=== PATIENT | male | born 1950 | race Caucasian/White ===

== ENCOUNTER 2023-07-27 09:37 | Inpatient (IN) ==
[2023-07-27 10:15] LABS: Appearance Urine Turbid (Clear); Bacteria Urine Automated 4+ (Negative); Bilirubin Urine Negative (Negative); Blood Urine 2+ (Negative); Color Urine Dark Yellow; Glucose Urine UA Negative (Negative); Ketones Urine 2+ (Negative); Leukocyte Esterase Urine 3+ (Negative); Nitrite Urine Positive (Negative); Protein Urine 2+ (Negative); RBC Urine Automated 0-4 /hpf (0-4); Specific Gravity Urine 1.021 (1.000-1.030); Urobilinogen Urine Negative (Negative); WBC Urine Automated >30 /hpf (0-5); pH Urine 5.5 (4.5-7.5)
[2023-07-27] MEDS: SODIUM CHLORIDE 0.9% 1,000 ML IV SCH ×2 (10:45→12:16)
[2023-07-27] MEDS: SODIUM CHLORIDE 0.9% 500 ML IV ONE (10:45)
[2023-07-27 10:53] LABS: Influenza A virus by PCR Positive (Neg); Influenza B virus by PCR Negative (Neg); RSV by PCR Negative (Neg); SARS CoV2 RNA(COVID-19) Ceph NEGATIVE (Negative)
--- NOTE | 2023-07-27 10:55 | XRay Report ---
XR chest 1V portable HISTORY: cough COMPARISON: None. FINDINGS: No pneumothorax or no pleural effusions. Punctate calcified granuloma seen within the left upper lobe. There is mild interstitial thickening. This is likely chronic. The heart is mildly enlarg ed. No evidence for pulmonary edema. No acute fractures. There is a focal 3.8 cm left retrocardiac de nsity. IMPRESSION: A focal 3.8 cm left retrocardiac density. This may represent a pneumonia or pulmonary lesion. Therefo re, follow-up chest x-ray in one to 2 months is recommended to ensure resolution. ACT 112: Positive. There are findings on this exam that require communication between the performing entity and the patient following Patient Test Result Information Act ([place] Act 112) guidelines. Electronically signed by: Lalit Almanzar M.D. 07/27/2023 10:52 AM
[2023-07-27 11:02] LABS: Basophils # (auto) 0.12 K/uL (0.00-0.20); Basophils % (auto) 0.6 %; Eosinophils # (auto) 0.02 K/uL (0.00-0.50); Eosinophils % (auto) 0.1 %; Hematocrit (blood only) 41.2 % (42.0-52.0); Immature Granulocytes # (auto) 0.41 K/uL (0.01-0.20); Immature Granulocytes % (auto) 2.1 %; Lymphocytes # (auto) 1.07 K/uL (1.20-3.40); Lymphocytes % (auto) 5.4 %; Mean Corpuscular Hemoglobin 28.5 pg (25.0-34.0); Mean Corpuscular Volume 83.9 fL (80.0-100.0); Mean Platelet Volume 10.1 fL (9.4-12.4); Monocytes # (auto) 1.77 K/uL (0.11-0.59); Monocytes % (auto) 8.9 %; Neutrophils # (auto) 16.53 K/uL (1.40-6.50); Neutrophils % (auto) 82.9 %; Platelet Count 420 K/uL (130-400); RDW Coefficient of Variation 15.3 % (11.5-14.5); RDW Standard Deviation 46.6 fL (36.4-46.3); Red Blood Count 4.91 M/uL (4.70-6.10); White Blood Count 19.92 K/ul (4.8-10.8)
[2023-07-27] MEDS: ACETAMINOPHEN 500 MG TAB PO STA (11:14)
[2023-07-27] MEDS: cefTRIAXone SODIUM 2,000 MG/50 ML BAG IV STA (11:15)
[2023-07-27 11:16] LABS: Albumin Level 4.1 gm/dl (3.4-5.0); BUN Creatinine Ratio 19.8 (10-20); Bilirubin,Total 0.8 mg/dl (0.2-1.0); Calcium 9.4 mg/dl (8.6-10.3); Creatinine Clr Calc Pharmacy 66.1 ml/min; Est GFR (African American) 85.7 ml/min; Globulin 4.3 gm/dl (2.5-4.0); Magnesium 2.2 mg/dl (1.7-2.4); Potassium 3.7 mmol/L (3.5-5.1); Total Protein 8.4 gm/dl (6.0-8.3)
[2023-07-27 11:20] LABS: Troponin I High Sensitivity 22.4 pg/ml (0-20)
[2023-07-27 11:23] LABS: INR 1.1 (0.9-1.1); Partial Thromboplastin Ratio 1.2; Partial Thromboplastin Time 34 Seconds (21-31); Prothrombin Time 11.9 Seconds (9.0-12.0)
--- NOTE | 2023-07-27 12:04 | History & Physical Report ---
Date of Service July 27, 2023 Assessment & Plan (1) Sepsis: Plan: This is a 73 y/o male with a history of multiple UTIs who presented to the ED today with flu-like symptoms as well as persistent urinary symptoms. He notes recent treatment for a UTI but unsure with what antibiotic. Pt met sepsis criteria upon presentation with tachycardia, leukocytosis, and presumed source of infection with a urinary source. Initial lactate was 1.6. Pt also tested positive for influenza A. Chest x-ray shows moderate LLL airspace opacity, likely due to pneumonia. Responded to fluid resuscitation in the ED with improvement in heart rate and BP. - Admit to PCU - Continue empiric antibiotics - blood and urine cultures pending - Labs in the AM - CBC, BMP, LFTs - Check MRSA swab - Encourage oral intake - continue IV fluid resuscitation protocol as started in the ED. (2) UTI (urinary tract infection): Plan: Continue empiric antibiotics Await urine culture results, then transition to oral antibiotic (3) Bacterial conjunctivitis of left eye: Plan: Polytrim drops x 1 week (4) Pneumonia: Plan: Will need f/u x-ray in 1-2 months to ensure resolution as underlying pulmonary lesion cannot be ruled out at present Continue empiric antibiotics with ceftriaxone and azithromycin (5) Influenza A: Plan: Flu-like symptoms for five days so patient is outside the window for Tamiflu Continue supportive care Droplet precautions Plan Pt seen and reviewed with collaborating physician, Dr. Lindo. Plan of care discussed and as outlined above. Code status: Full code DVT Prophylaxis: Purnima Kc PA-C History of Present Illness Chief Complaint: flu-like symptoms Primary Care Provider: NO PCP This is a 73 y/o male with a history of UTIs who presents to the ED today with five days of flu-like symptoms. He also notes that he was recently treated for a UTI but is unsure what antibiotic he was on. He reports fatigue, body aches, cough, and chills for the last five days. He moved to the area about two weeks ago from [place] and has not yet established with a PCP here. He notes at least 2-3 UTIs in the last several months but is unsure what antibiotics have been used. He denies history of BPH or other prostate issues. His current urinary symptoms include urinary frequency and urgency but denies dysuria or hematuria. He also noted purulent drainage from his left eye that started last night. Associated gritty sensation but no pain, no visual changes. Allergies Allergy/AdvReac Type Severity Reaction Status Date / Time No Known Allergies Allergy Unverified 07/27/23 12:21 Home Medications Medication Instructions Recorded Confirmed Type No Known Home Medications 07/27/23 07/27/23 History Past Med/Surg History Medical History Frequent UTI Surgical History S/P tonsillectomy Family History Father Heart disease Social History Smoking Status: Never smoker Second Hand Exposure: No; Hx Alcohol Use: No Hx Substance Use: No Preferred Language: Ukrainian Hand Cooper Helper Required: No Current Living Situation: Spouse current occupational status: retired Feels Safe at Home: Yes Safety Concerns: Feels Safe At This Time Review of Systems Review of Systems: All systems reviewed & are unremarkable except as noted in HPI & below Physical Exam Physical Exam: General: awake, alert, NAD Eyes: left eye with moderate purulent drainage, mild conjunctival erythema Mouth: moist mucus membranes Neck: trachea midline Heart: regular but tachycardic Lungs: CTA bilaterally Abdomen: soft, NT, +BS Extremities: no pedal edema Skin: warm, dry, no jaundice Neurologic: oriented x 3, moving all extremities, no focal deficits. Results & Data Results & Data Vital Signs (Past 12 Hours) Vital Signs Temp Pulse Pulse Resp BP BP Pulse Ox 07/27/23 11:31 106 H 24 151/82 H 96 07/27/23 10:38 37.9 C H 07/27/23 10:38 115 H 22 92 07/27/23 09:47 37.3 C 120 H 20 125/70 91 O2 Del Method 07/27/23 11:31 Room Air 07/27/23 10:38 07/27/23 10:38 Room Air 07/27/23 09:47 Room Air Laboratory Results Laboratory Results - last 24 hr 07/27/23 07/27/23 07/27/23 09:23 09:53 10:27 WBC 19.92 H RBC 4.91 Hgb 14.0 Hct 41.2 L MCV 83.9 MCH 28.5 MCHC 34.0 RDW Std Deviation 46.6 H RDW Coeff of Cheri 15.3 H Plt Count 420 H MPV 10.1 Immature Gran % (Auto) 2.1 Neut % (Auto) 82.9 Lymph % (Auto) 5.4 Sullivan % (Auto) 8.9 Eos % (Auto) 0.1 Baso % (Auto) 0.6 Neut # (Auto) 16.53 H Lymph # (Auto) 1.07 L Sullivan # (Auto) 1.77 H Eos # (Auto) 0.02 Baso # (Auto) 0.12 Immature Gran # (Auto) 0.41 H PT 11.9 INR 1.1 APTT 34 H PTT Ratio 1.2 Sodium 133 L Potassium 3.7 Chloride 96 L Carbon Dioxide 25 Anion Gap 12 H BUN 20 Creatinine 1.01 Est Cr Clr Drug Dosing 66.1 Est GFR ( Amer) 85.7 Est GFR (Non-Af Amer) 74.0 BUN/Creatinine Ratio 19.8 Glucose 120 H Lactate Calcium 9.4 Magnesium 2.2 Total Bilirubin 0.8 AST 33 ALT 37 Alkaline Phosphatase 166 H Troponin I High Sens 22.4 H Total Protein 8.4 H Albumin 4.1 Globulin 4.3 H Albumin/Globulin Ratio 1.0 Urine Color Dark Yellow Urine Appearance Turbid A Urine pH 5.5 Ur Specific [place] 1.021 Urine Protein 2+ H Urine Glucose (UA) Negative Urine Ketones 2+ H Urine Blood 2+ H Urine Nitrite Positive A Urine Bilirubin Negative Urine Urobilinogen Negative Ur Leukocyte Esterase 3+ H Urine WBC (Auto) >30 H Urine RBC (Auto) 0-4 U Hyaline Cast (Auto) 1-5 U Epithel Cells (Auto) 5-10 H Urine Bacteria (Auto) 4+ H Ur Renal Epithelial Cell Urine Crystals Calcium Oxalate Crystal Uric Acid Crystals Triple Phos Crystals Other Crystals Amorphous Sediment Granular Casts Waxy Casts RBC Casts WBC Casts Other Casts Urine Mucus Urine Other Urine Trichomonas Urine Yeast Urine Sperm Ur Oval Fat Bodies SARS-CoV-2 (PCR) NEGATIVE Influenza Type A (PCR) Positive A Influenza Type B (PCR) Negative RSV (RT-PCR) Negative 07/27/23 07/27/23 11:07 Unknown WBC RBC Hgb Hct MCV MCH MCHC RDW Std Deviation RDW Coeff of Cheri Plt Count MPV Immature Gran % (Auto) Neut % (Auto) Lymph % (Auto) Sullivan % (Auto) Eos % (Auto) Baso % (Auto) Neut # (Auto) Lymph # (Auto) Sullivan # (Auto) Eos # (Auto) Baso # (Auto) Immature Gran # (Auto) PT INR APTT PTT Ratio Sodium Potassium Chloride Carbon Dioxide Anion Gap BUN Creatinine Est Cr Clr Drug Dosing Est GFR ( Amer) Est GFR (Non-Af Amer) BUN/Creatinine Ratio Glucose Lactate 1.6 Calcium Magnesium Total Bilirubin AST ALT Alkaline Phosphatase Troponin I High Sens Total Protein Albumin Globulin Albumin/Globulin Ratio Urine Color Cancelled Urine Appearance Cancelled Urine pH Cancelled Ur Specific [place] Cancelled Urine Protein Cancelled Urine Glucose (UA) Cancelled Urine Ketones Cancelled Urine Blood Cancelled Urine Nitrite Cancelled Urine Bilirubin Cancelled Urine Urobilinogen Cancelled Ur Leukocyte Esterase Cancelled Urine WBC (Auto) Cancelled Urine RBC (Auto) Cancelled U Hyaline Cast (Auto) Cancelled U Epithel Cells (Auto) Cancelled Urine Bacteria (Auto) Cancelled Ur Renal Epithelial Cell Cancelled Urine Crystals Cancelled Calcium Oxalate Crystal Cancelled Uric Acid Crystals Cancelled Triple Phos Crystals Cancelled Other Crystals Cancelled Amorphous Sediment Cancelled Granular Casts Cancelled Waxy Casts Cancelled RBC Casts Cancelled WBC Casts Cancelled Other Casts Cancelled Urine Mucus Cancelled Urine Other Cancelled Urine Trichomonas Cancelled Urine Yeast Cancelled Urine Sperm Cancelled Ur Oval Fat Bodies Cancelled SARS-CoV-2 (PCR) Influenza Type A (PCR) Influenza Type B (PCR) RSV (RT-PCR) Diagnostic Findings Chest X-Ray 07/27/23 09:57 XR chest 1V portable HISTORY: cough COMPARISON: None. FINDINGS: No pneumothorax or no pleural effusions. Punctate calcified granuloma seen within the left upper lobe. There is mild interstitial thickening. This is likely chronic. The heart is mildly enlarged. No evidence for pulmonary edema. No acute fractures. There is a focal 3.8 cm left retrocardiac density. IMPRESSION: A focal 3.8 cm left retrocardiac density. This may represent a pneumonia or pulmonary lesion. Therefore, follow-up chest x-ray in one to 2 months is recommended to ensure resolution. ACT 112: Positive. There are findings on this exam that require communication between the performing entity and the patient following Patient Test Result Information Act ([place] Act 112) guidelines. Electronically signed by: Lalit Almanzar M.D. 07/27/2023 10:52 AM Medications Administered Sodium Chloride (Nss) 1,000 mls @ 125 mls/hr IV .Q8H ROHIT Stop: 08/26/23 10:44 Last Admin: 07/27/23 10:45 Dose: 125 mls/hr Documented By: KILO Discontinued Medications Acetaminophen (Acetaminophen 500 Mg Tab) 1,000 mg PO NOW STA Stop: 07/27/23 10:56 Last Admin: 07/27/23 11:14 Dose: 1,000 mg Documented By: ARON Ceftriaxone Sodium (Rocephin) 2,000 mg in 50 mls @ 100 mls/hr IV NOW STA Stop: 07/27/23 10:55 Last Infusion: 07/27/23 11:41 Dose: Infused Documented By: Admin: 07/27/23 11:15 Dose: 100 mls/hr Documented By: ARON Sodium Chloride (Nss) 500 mls @ 999 mls/hr IV .Q31M ONE Stop: 07/27/23 11:10 Last Infusion: 07/27/23 11:19 Dose: Infused Documented By: Admin: 07/27/23 10:45 Dose: 999 mls/hr Documented By: KILO Supervising Physician Co-Signing Physician Notes I have seen and examined the patient and have discussed the case with the provider above. I have reviewed the advanced practitioner's documentation, and I agree with, and take responsibility for that plan of care. The patient is a 73-year-old man reporting no chronic medical problems who presents with an influenza-like illness for the past 5 to 6 days. Symptoms are consistent with influenza and he test positive. Otherwise history as noted above. He denies any chest pain. He does report to me presence of increased urinary frequency and urgency over an unspecified time with a history of frequent UTIs in the past. He denies any dysuria or hematuria and no pelvic or flank pain noted. Patient does meet sepsis criteria and heart rate is still elevated. On exam he is ill-appearing with blood pressure 119/67, pulse 110. He has normal respirations and no increased respiratory effort. Lungs are clear to auscultation throughout. Deep breaths are triggering cough. He is afebrile currently but was febrile initially with a temp of 37.9 C and oxygenating well on room air. He is mentating clearly. ENT exam reveals a purulent discharge fr om the left eye consistent with a possible bacterial conjunctivitis. Oral mucous membranes are moist. Cardiac exam reveals S1-S2 heard with no murmurs gallops or rubs. He examines as euvolemic to dry and has no peripheral edema. Abdomen soft nontender nondistended. No gross focal neuromuscular deficits are present. Workup in the ER reveals a CBC with elevated white blood cell count of 19.92. H&H is normal and platelet count is slightly elevated at 420. There is a left shift on the differential. CHEM panel reveals a slightly low sodium at 133 with an otherwise normal chemistry and a normal lactate. Slightly elevated highly sensitive troponin at 22.4 with repeat of 13.3 in the setting of tachycardia. UA is reflective of an infection. Nasal PCR is positive for flu A. Chest x-ray today is concerning for possible left lower lobe airspace opacity favoring a pneumonia. Overall this is a patient with influenza A infection with underlying UTI and possible pneumonia. Agree with withholding Tamiflu at this point given timing of symptoms. Continue with Rocephin and azithromycin pending clinical improvement and culture results. Continue supportive care efforts for influenza illness. Tachycardia and fever with elevated white count in setting of urinary tract infection consistent with sepsis 2/2 UTI, and he received initial sepsis resuscitation efforts in the ER with improvement in heart rate. Mildly elevated troponin is less concerning for ACS given lack of symptoms consistent with this, EKG which reveals sinus tachycardia without evidence of acute ischemia and a repeat troponin that is decreased into the normal range. Continue care plan as noted above. DO Guicho (1) Sepsis Sepsis acute organ dysfunction status: without acute organ dysfunction Sepsis type: sepsis due to unspecified organism Qualified Code(s): A41.9 - Sepsis, unspecified organism (2) UTI (urinary tract infection) Hematuria presence: without hematuria Urinary tract infection type: site unspecified Qualified Code(s): N39.0 - Urinary tract infection, site not specified (4) Pneumonia Laterality: left Lung location: lower lobe of lung Pneumonia type: due to unspecified organism Qualified Code(s): J18.9 - Pneumonia, unspecified organism
--- NOTE | 2023-07-27 12:12 | XRay Report ---
XR chest 2V PA/lateral CLINICAL HISTORY: retrocardiac opacity COMPARISON STUDY: Chest radiograph performed earlier today. FINDINGS: Lung volumes are normal. There is no pneumothorax or pleural effusion. Pulmonary vascularit y is normal. There is mild cardiomegaly. Moderate left lower lobe airspace opacity is present. This c orresponds to the opacity on portable chest radiograph performed earlier today. Right lung is clear. IMPRESSION: Moderate left lower lobe airspace opacity. This favors pneumonia. However, post treatment radiographs in one to 2 months to ensure resolution are recommended to exclude the possibility of an pulmonary lesion. ACT 112: Negative or not required by law. Electronically signed by: Milton Michelle M.D. 07/27/2023 12:11 PM
--- NOTE | 2023-07-27 12:15 | Electrocardiogram Report ---
Test Reason : Blood Pressure : / mmHG Vent. Rate : 116 BPM Atrial Rate : 116 BPM P-R Int : 124 ms QRS Dur : 086 ms QT Int : 318 ms P-R-T Axes : 058 -34 037 degrees QTc Int : 442 ms Sinus tachycardia with occasional Premature ventricular complexes Left axis deviation Nonspecific ST abnormality Abnormal ECG No previous ECGs available Confirmed by Sidney Herron ([id number]) on 07/27/2023 12:15:07 PM Referred By: Confirmed By:Sidney Herron
[2023-07-27] MEDS: SODIUM CHLORIDE 0.9% 1,000 ML IV ONE (12:16)
[2023-07-27] MEDS: AZITHROMYCIN 500 MG in DEXTROSE 5% 250 ML IV SCH (15:59)
[2023-07-27] MEDS: SODIUM CHLORIDE 0.9% 250 ML IV ONE (15:59)
[2023-07-27] MEDS: TRIMETHOPRIM/POLYMYXIN B OP SCH (16:02)
[2023-07-27] MEDS: ACETAMINOPHEN 325 MG TAB PO PRN (20:54)
[2023-07-28] MEDS: guaiFENesin/CODEINE 100MG/10MG 5ML UDC PO PRN (03:59)
[2023-07-28 06:38] LABS: Basophils # (auto) 0.11 K/uL (0.00-0.20); Basophils % (auto) 0.6 %; Eosinophils # (auto) 0.08 K/uL (0.00-0.50); Eosinophils % (auto) 0.4 %; Hematocrit (blood only) 32.5 % (42.0-52.0); Hemoglobin 11.5 g/dl (14.0-18.0); Immature Granulocytes # (auto) 0.76 K/uL (0.01-0.20); Immature Granulocytes % (auto) 4.1 %; Lymphocytes # (auto) 1.33 K/uL (1.20-3.40); Lymphocytes % (auto) 7.2 %; Mean Corpuscular Hemoglobin 29.1 pg (25.0-34.0); Mean Corpuscular Hgb Conc 35.4 g/dL (32.0-36.0); Mean Corpuscular Volume 82.3 fL (80.0-100.0); Monocytes % (auto) 10.2 %; Neutrophils # (auto) 14.36 K/uL (1.40-6.50); Neutrophils % (auto) 77.5 %; Platelet Count 338 K/uL (130-400); RDW Coefficient of Variation 15.4 % (11.5-14.5); RDW Standard Deviation 46.3 fL (36.4-46.3); Red Blood Count 3.95 M/uL (4.70-6.10); White Blood Count 18.54 K/ul (4.8-10.8)
[2023-07-28 07:10] LABS: Albumin Level 3.2 gm/dl (3.4-5.0); BUN Creatinine Ratio 17.3 (10-20); Bilirubin Direct 0.2 mg/dl (0-0.2); Bilirubin,Total 0.7 mg/dl (0.2-1.0); Est GFR (African American) 106.2 ml/min; Est GFR (Non-African American) 91.6 ml/min; Potassium 3.5 mmol/L (3.5-5.1); Total Protein 6.5 gm/dl (6.0-8.3)
[2023-07-28] MEDS: ENOXAPARIN INJ 40 MG/0.4 ML SYR SQ SCH (08:58)
[2023-07-28] MEDS: cefTRIAXone SODIUM 2,000 MG in DEXTROSE 5 % MINI-B 50 ML IV SCH (09:00)
--- NOTE | 2023-07-28 10:53 | Emergency Department Note ---
Impression & Plan Pneumonia, UTI (urinary tract infection), Influenza A ED Provider Note CHIEF COMPLAINT: Flulike symptoms HISTORY OF PRESENT ILLNESS: This 73-year-old male patient presents to the emergency department cough, body aches with chills for the last 7 days. He is not clear if he had a fever or not. Patient's just moved to the area about 7 days ago. Patient's notes that he has not been doing well, has very little to eat and she believes he is lost weight. She states that she and her grandson have similar symptoms, but on much less of the scale. Patient states he is returning to keep up with fluids. He denies any vomiting or diarrhea. REVIEW OF SYSTEMS: A review of systems was performed with positives and pertinent negatives listed in the history of present illness. 10 systems were reviewed and are otherwise negative. ALLERGIES: see below MEDICATIONS: see below PMH: see below SOCIAL HISTORY: see below DDx: COVID-19, influenza, dehydration, metabolic abnormality, pneumonia, UTI among others. PHYSICAL EXAM: Vital signs reviewed. Noted to be febrile General: Elderly 73-year-old male, somewhat ill-appearing but, in no significant distress. HEENT: No scleral icterus, PERRLA, neck supple. Moist mucous membranes. Mild conjunctival injection, minimal lid swelling on the left eye. Cardiovascular: Tachycardic but regular, no extra sounds Pulmonary: Clear to auscultation bilaterally, normal work of breathing. Abdomen: Soft, nontender, nondistended, positive bowel sounds. Musculoskeletal: Atraumatic, no peripheral edema. Neurologic: Patient awake alert and oriented x 3, speech is clear Skin: Warm, dry, no rash EMERGENCY DEPARTMENT COURSE/MDM: This patient was evaluated and appeared to be in no significant distress. IV access was obtained and laboratory work was drawn. The patient was given acetaminophen 1000 mg by mouth. Chest x-ray was performed and is concerning for pneumonia. Blood cultures were sent and the patient was given IV ceftriaxone. Laboratory work reveals an elevated WBC. UA is concerning for infection. Isolation precautions were placed and the patient's case was discussed with hospitalist service for admission and further management. Patient and have expressed understanding of the plan and agree. MONITORING: An order for cardiac monitoring was placed and the patient is noted to be in a sinus tachycardia at 106 beats per minute. RADIOLOGY: Chest x-ray to my interpretation reveals no evidence of focal lung consolidation however per radiology there is concern for a retrocardiac density. Per radiology it is felt that this represents pneumonia, follow-up in several months to ensure resolution recommended. EKG: To my interpretation reveals sinus tachycardia at 116 bpm. Left axis deviation, normal ST segments. Nonspecific ST and T wave abnormality QTc is 442. 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 Current Living Situation: Spouse current occupational status: retired Feels Safe at Home: Yes Safety Concerns: Feels Safe At This Time Assistive Devices: None Allergies Allergies Allergy/AdvReac Type Severity Reaction Status Date / Time No Known Allergies Allergy Unverified 07/27/23 12:21 Home Meds Home Medications Medication Instructions Recorded Confirmed No Known Home Medications 07/27/23 07/27/23 Previous Rx's Medication Instructions Recorded ciprofloxacin HCl 500 mg tablet 500 mg PO Q12H #26 tabs 07/30/23 Results & Data (ED) Vital Signs Vital Signs - 24 hr 07/27/23 11:31 Pulse Rate [Right Finger] 106 H Respiratory Rate 24 Blood Pressure [Right Arm] 151/82 H Blood Pressure Mean [Right Arm] 105 Pulse Oximetry 96 Oxygen Delivery Method Room Air Home Medications Current Medication List: was personally reviewed by me Laboratory Data Attestation: I reviewed the patient's lab results. 07/30/23 06:17 07/30/23 06:17 Lab Results 07/27/23 07/27/23 07/27/23 Range/Units 09:23 09:53 10:27 WBC 19.92 H (4.8-10.8) K/ul RBC 4.91 (4.70-6.10) M/uL Hgb 14.0 (14.0-18.0) g/dl Hct 41.2 L (42.0-52.0) % MCV 83.9 (80.0-100.0) fL MCH 28.5 (25.0-34.0) pg MCHC 34.0 (32.0-36.0) g/dL RDW Std Deviation 46.6 H (36.4-46.3) fL RDW Coeff of Cheri 15.3 H (11.5-14.5) % Plt Count 420 H (130-400) K/uL MPV 10.1 (9.4-12.4) fL Immature Gran % (Auto) 2.1 % Neut % (Auto) 82.9 % Lymph % (Auto) 5.4 % [place] % (Auto) 8.9 % Eos % (Auto) 0.1 % Baso % (Auto) 0.6 % Neut # (Auto) 16.53 H (1.40-6.50) K/uL Lymph # (Auto) 1.07 L (1.20-3.40) K/uL [place] # (Auto) 1.77 H (0.11-0.59) K/uL Eos # (Auto) 0.02 (0.00-0.50) K/uL Baso # (Auto) 0.12 (0.00-0.20) K/uL Immature Gran # (Auto) 0.41 H (0.01-0.20) K/uL PT 11.9 (9.0-12.0) Seconds INR 1.1 (0.9-1.1) APTT 34 H (21-31) Seconds PTT Ratio 1.2 Sodium 133 L (136-145) mmol/L Potassium 3.7 (3.5-5.1) mmol/L Chloride 96 L (98-107) mmol/L Carbon Dioxide 25 (21-32) mmol/L Anion Gap 12 H (3-11) BUN 20 (6-23) mg/dl Creatinine 1.01 (0.6-1.4) mg/dl Est Cr Clr Drug Dosing 66.1 ml/min Est GFR ( Amer) 85.7 ml/min Est GFR (Non-Af Amer) 74.0 ml/min BUN/Creatinine Ratio 19.8 (10-20) Glucose 120 H (70-99(Fasting)) mg/dl Lactate (0.4-2.0) mmol/L Calcium 9.4 (8.6-10.3) mg/dl Magnesium 2.2 (1.7-2.4) mg/dl Total Bilirubin 0.8 (0.2-1.0) mg/dl AST 33 (13-39) U/L ALT 37 (7-52) U/L Alkaline Phosphatase 166 H (34-104) U/L Troponin I High Sens 22.4 H (0-20) pg/ml Total Protein 8.4 H (6.0-8.3) gm/dl Albumin 4.1 (3.4-5.0) gm/dl Globulin 4.3 H (2.5-4.0) gm/dl Albumin/Globulin Ratio 1.0 (0.9-2) Urine Color Dark Yellow Urine Appearance Turbid A (Clear) Urine pH 5.5 (4.5-7.5) Ur Specific [place] 1.021 (1.000-1.030) Urine Protein 2+ H (Negative) Urine Glucose (UA) Negative (Negative) Urine Ketones 2+ H (Negative) Urine Blood 2+ H (Negative) Urine Nitrite Positive A (Negative) Urine Bilirubin Negative (Negative) Urine Urobilinogen Negative (Negative) Ur Leukocyte Esterase 3+ H (Negative) Urine WBC (Auto) >30 H (0-5) /hpf Urine RBC (Auto) 0-4 (0-4) /hpf U Hyaline Cast (Auto) 1-5 (0-5) /lpf U Epithel Cells (Auto) 5-10 H (0-5) /lpf Urine Bacteria (Auto) 4+ H (Negative) SARS-CoV-2 (PCR) NEGATIVE (Negative) H. influenzae (PCR) (NotDetected) Influenza Type A (PCR) Positive A (Neg) Influenza Type B (PCR) Negative (Neg) RSV (RT-PCR) Negative (Neg) Bld Cult ID Panel PCR (NotDetected) 07/27/23 07/27/23 Range/Units 10:52 11:07 WBC (4.8-10.8) K/ul RBC (4.70-6.10) M/uL Hgb (14.0-18.0) g/dl Hct (42.0-52.0) % MCV (80.0-100.0) fL MCH (25.0-34.0) pg MCHC (32.0-36.0) g/dL RDW Std Deviation (36.4-46.3) fL RDW Coeff of Cheri (11.5-14.5) % Plt Count (130-400) K/uL MPV (9.4-12.4) fL Immature Gran % (Auto) % Neut % (Auto) % Lymph % (Auto) % [place] % (Auto) % Eos % (Auto) % Baso % (Auto) % Neut # (Auto) (1.40-6.50) K/uL Lymph # (Auto) (1.20-3.40) K/uL [place] # (Auto) (0.11-0.59) K/uL Eos # (Auto) (0.00-0.50) K/uL Baso # (Auto) (0.00-0.20) K/uL Immature Gran # (Auto) (0.01-0.20) K/uL PT (9.0-12.0) Seconds INR (0.9-1.1) APTT (21-31) Seconds PTT Ratio Sodium (136-145) mmol/L Potassium (3.5-5.1) mmol/L Chloride (98-107) mmol/L Carbon Dioxide (21-32) mmol/L Anion Gap (3-11) BUN (6-23) mg/dl Creatinine (0.6-1.4) mg/dl Est Cr Clr Drug Dosing ml/min Est GFR ( Amer) ml/min Est GFR (Non-Af Amer) ml/min BUN/Creatinine Ratio (10-20) Glucose (70-99(Fasting)) mg/dl Lactate 1.6 (0.4-2.0) mmol/L Calcium (8.6-10.3) mg/dl Magnesium (1.7-2.4) mg/dl Total Bilirubin (0.2-1.0) mg/dl AST (13-39) U/L ALT (7-52) U/L Alkaline Phosphatase (34-104) U/L Troponin I High Sens (0-20) pg/ml Total Protein (6.0-8.3) gm/dl Albumin (3.4-5.0) gm/dl Globulin (2.5-4.0) gm/dl Albumin/Globulin Ratio (0.9-2) Urine Color Urine Appearance (Clear) Urine pH (4.5-7.5) Ur Specific [place] (1.000-1.030) Urine Protein (Negative) Urine Glucose (UA) (Negative) Urine Ketones (Negative) Urine Blood (Negative) Urine Nitrite (Negative) Urine Bilirubin (Negative) Urine Urobilinogen (Negative) Ur Leukocyte Esterase (Negative) Urine WBC (Auto) (0-5) /hpf Urine RBC (Auto) (0-4) /hpf U Hyaline Cast (Auto) (0-5) /lpf U Epithel Cells (Auto) (0-5) /lpf Urine Bacteria (Auto) (Negative) SARS-CoV-2 (PCR) (Negative) H. influenzae (PCR) DETECTED A (NotDetected) Influenza Type A (PCR) (Neg) Influenza Type B (PCR) (Neg) RSV (RT-PCR) (Neg) Bld Cult ID Panel PCR See PCR Comment (NotDetected) Administered Medications Discontinued Medications Acetaminophen (Acetaminophen 500 Mg Tab) 1,000 mg PO NOW STA Stop: 07/27/23 10:56 Last Admin: 07/27/23 11:14 Dose: 1,000 mg Documented By: ARON Acetaminophen (Acetaminophen 325 Mg Tab) 650 mg PO Q4H PRN PRN Reason: Pain or Fever Stop: 08/26/23 14:53 Last Admin: 07/29/23 03:49 Dose: 650 mg Documented By: Admin: 07/28/23 19:39 Dose: 650 mg Documented By: Admin: 07/28/23 09:00 Dose: 650 mg Documented By: Admin: 07/28/23 05:01 Dose: 650 mg Documented By: Admin: 07/27/23 20:54 Dose: 650 mg Documented By: MIKI Enoxaparin Sodium (Enoxaparin Inj 40 Mg/0.4 Ml Syr) 40 mg SQ QAM ROHIT Stop: 08/27/23 08:59 Last Admin: 07/30/23 08:49 Dose: Not Given Documented By: Admin: 07/29/23 09:47 Dose: Not Given Documented By: Admin: 07/28/23 08:58 Dose: Not Given Documented By: MART Guaifenesin/Codeine Phosphate (Guaifenesin/Codeine 100mg/10mg 5ml Udc) 5 ml PO Q6H PRN PRN Reason: Cough Stop: 08/27/23 03:45 Last Admin: 07/29/23 09:51 Dose: 5 ml Documented By: Admin: 07/29/23 03:14 Dose: 5 ml Documented By: Admin: 07/28/23 19:39 Dose: 5 ml Documented By: Admin: 07/28/23 12:42 Dose: 5 ml Documented By: Admin: 07/28/23 03:59 Dose: 5 ml Documented By: MIKI Ceftriaxone Sodium (Rocephin) 2,000 mg in 50 mls @ 100 mls/hr IV NOW STA Stop: 07/27/23 10:55 Last Infusion: 07/27/23 11:41 Dose: Infused Documented By: Admin: 07/27/23 11:15 Dose: 100 mls/hr Documented By: ARON Sodium Chloride (Nss) 500 mls @ 999 mls/hr IV .Q31M ONE Stop: 07/27/23 11:10 Last Infusion: 07/27/23 11:19 Dose: Infused Documented By: Admin: 07/27/23 10:45 Dose: 999 mls/hr Documented By: KILO Sodium Chloride (Nss) 1,000 mls @ 125 mls/hr IV .Q8H ROHIT Stop: 07/28/23 02:44 Last Infusion: 07/28/23 02:43 Dose: Infused Documented By: Admin: 07/27/23 16:02 Dose: 125 mls/hr Documented By: Infusion: 07/27/23 16:02 Dose: Infused Documented By: Admin: 07/27/23 10:45 Dose: 125 mls/hr Documented By: IKLO Sodium Chloride (Nss) 1,000 mls @ 999 mls/hr IV .Q1H1M ONE Stop: 07/27/23 12:20 Last Infusion: 07/27/23 13:44 Dose: Infused Documented By: Admin: 07/27/23 12:16 Dose: 999 mls/hr Documented By: ARON Sodium Chloride (Nss) 1,000 mls @ 250 mls/hr IV .Q4H [facility] Stop: 08/26/23 11:29 Last Infusion: 07/27/23 16:41 Dose: Infused Documented By: Infusion: 07/27/23 16:09 Dose: 0 mls/hr Documented By: Infusion: 07/27/23 16:08 Dose: 0 mls/hr Documented By: Admin: 07/27/23 12:16 Dose: 250 mls/hr Documented By: ARON Azithromycin 500 mg/ Dextrose 255 mls @ 125 mls/hr IV Q24H [facility] Stop: 08/03/23 14:59 Last Admin: 07/28/23 15:24 Dose: Not Given Documented By: Infusion: 07/27/23 18:08 Dose: Infused Documented By: Admin: 07/27/23 15:59 Dose: 125 mls/hr Documented By: AMBIKA Ceftriaxone Sodium 2,000 mg/ (Dextrose) 50 mls @ 100 mls/hr IV Q24H [facility]; Protocol Stop: 08/01/23 07:59 Last Infusion: 07/28/23 09:30 Dose: Infused Documented By: Admin: 07/28/23 09:00 Dose: 100 mls/hr Documented By: MART Sodium Chloride (Nss) 250 mls @ 999 mls/hr IV .Q16M ONE Stop: 07/27/23 15:19 Last Infusion: 07/27/23 16:40 Dose: Infused Documented By: Admin: 07/27/23 15:59 Dose: 999 mls/hr Documented By: AMBIKA Lactated Ringer's (Lr) 500 mls @ 999 mls/hr IV .Q31M ONE Stop: 07/28/23 15:38 Last Infusion: 07/28/23 15:56 Dose: Infused Documented By: Admin: 07/28/23 15:25 Dose: 999 mls/hr Documented By: MART Ampicillin Sodium/Sulbactam Sodium 3,000 mg/ Sodium Chloride 100 mls @ 200 mls/hr IV Q6H [facility] Stop: 08/11/23 15:59 Last Infusion: 07/29/23 03:44 Dose: Infused Documented By: Admin: 07/29/23 03:14 Dose: 200 mls/hr Documented By: Infusion: 07/28/23 22:07 Dose: Infused Documented By: Admin: 07/28/23 21:37 Dose: 200 mls/hr Documented By: Infusion: 07/28/23 16:37 Dose: Infused Documented By: Admin: 07/28/23 16:07 Dose: 200 mls/hr Documented By: MART Ciprofloxacin (Cipro / D5w) 400 mg in 200 mls @ 100 mls/hr IV Q8H ROHIT; Protocol Stop: 08/12/23 09:29 Last Infusion: 07/30/23 10:49 Dose: Infused Documented By: Admin: 07/30/23 08:49 Dose: 100 mls/hr Documented By: Infusion: 07/30/23 02:34 Dose: Infused Documented By: Admin: 07/30/23 00:41 Dose: 100 mls/hr Documented By: Infusion: 07/29/23 19:50 Dose: Infused Documented By: Admin: 07/29/23 17:30 Dose: 100 mls/hr Documented By: Infusion: 07/29/23 13:09 Dose: Infused Documented By: Admin: 07/29/23 11:09 Dose: 100 mls/hr Documented By: MART Potassium Phosphate 30 mmol/ (Sodium Chloride) 510 mls @ 88 mls/hr IV ONE ONE Stop: 07/29/23 15:02 Last Infusion: 07/29/23 16:58 Dose: Infused Documented By: Admin: 07/29/23 11:10 Dose: 88 mls/hr Documented By: MART Polyethylene Glycol (Polyethylene (Miralax) 17 Gm Pack) 17 gm PO DAILY PRN PRN Reason: Constipation Stop: 08/29/23 03:06 Last Admin: 07/30/23 09:00 Dose: 17 gm Documented By: MART Polymyxin/Trimethoprim Sulfate (Trimethoprim/Polymyxin B) 1 drops OP Q3HWA ROHIT Stop: 08/03/23 14:59 Last Admin: 07/30/23 14:57 Dose: 1 drops Documented By: Admin: 07/30/23 11:15 Dose: 1 drops Documented By: Admin: 07/30/23 08:49 Dose: 1 drops Documented By: Admin: 07/30/23 05:08 Dose: 1 drops Documented By: Admin: 07/29/23 20:04 Dose: 1 drops Documented By: Admin: 07/29/23 17:30 Dose: 1 drops Documented By: Admin: 07/29/23 16:08 Dose: 1 drops Documented By: Admin: 07/29/23 11:10 Dose: 1 drops Documented By: Admin: 07/29/23 09:47 Dose: 1 drops Documented By: Admin: 07/29/23 05:07 Dose: 1 drops Documented By: Admin: 07/28/23 20:00 Dose: 1 drops Documented By: Admin: 07/28/23 18:09 Dose: 1 drops Documented By: Admin: 07/28/23 15:25 Dose: 1 drops Documented By: Admin: 07/28/23 12:37 Dose: 1 drops Documented By: Admin: 07/28/23 09:00 Dose: 1 drops Documented By: Admin: 07/28/23 05:01 Dose: 1 drops Documented By: Admin: 07/27/23 20:05 Dose: 1 drops Documented By: Admin: 07/27/23 16:45 Dose: 1 drops Documented By: Admin: 07/27/23 16:02 Dose: Not Given Documented By: LMS Imaging Data Radiologist's Impression: Chest X-Ray 07/27/23 09:57 XR chest 1V portable HISTORY: cough COMPARISON: None. FINDINGS: No pneumothorax or no pleural effusions. Punctate calcified granuloma seen within the left upper lobe. There is mild interstitial thickening. This is likely chronic. The heart is mildly enlarged. No evidence for pulmonary edema. No acute fractures. There is a focal 3.8 cm left retrocardiac density. IMPRESSION: A focal 3.8 cm left retrocardiac density. This may represent a pneumonia or pulmonary lesion. Therefore, follow-up chest x-ray in one to 2 months is recommended to ensure resolution. ACT 112: Positive. There are findings on this exam that require communication between the performing entity and the patient following Patient Test Result Information Act ([place] Act 112) guidelines. Electronically signed by: Lalit Almanzar M.D. 07/27/2023 10:52 AM Chest X-Ray 07/27/23 11:25 XR chest 2V PA/lateral CLINICAL HISTORY: retrocardiac opacity COMPARISON STUDY: Chest radiograph performed earlier today. FINDINGS: Lung volumes are normal. There is no pneumothorax or pleural effusion. Pulmonary vascularity is normal. There is mild cardiomegaly. Moderate left lower lobe airspace opacity is present. This corresponds to the opacity on portable chest radiograph performed earlier today. Right lung is clear. IMPRESSION: Moderate left lower lobe airspace opacity. This favors pneumonia. However, post treatment radiographs in one to 2 months to ensure resolution are recommended to exclude the possibility of an pulmonary lesion. ACT 112: Negative or not required by law. Electronically signed by: Milton Michelle M.D. 07/27/2023 12:11 PM Discharge Plan Visit Data Chief Complaint: Flu Like Symptoms Stated Complaint: COUGH/MUCUS/HEADACHE/BODY PAIN/FEVER ED Provider: Martha Palomino Discharge Problem: Pneumonia, UTI (urinary tract infection), Influenza A Patient Disposition: Admitted As Inpatient Discharge Instructions Interventions: ED Discharge Assessment Last Done: 07/27/23 13:32 Discharge Problem: Pneumonia Qualifiers: Pneumonia type: due to unspecified organism UTI (urinary tract infection) Qualifiers: Urinary tract infection type: acute cystitis Hematuria presence: without hematuria Qualified Code(s): N30.00 - Acute cystitis without hematuria
[2023-07-28 14:05] LABS: A calco-baum cmplx NotReported Not Detected (NotDetected); Bact fragilis Not Reported Not Detected (NotDetected); Blood Culture Id Panel See PCR Comment (NotDetected); C auris Not Reported Not Detected (NotDetected); Calbicans Not Reported Not Detected (NotDetected); Candida glabrata Not Reported Not Detected (NotDetected); Candida krusei Not Reported Not Detected (NotDetected); Cneoformans/gatti Not Reported Not Detected (NotDetected); Cparapsilosis Not Reported Not Detected (NotDetected); E cloacae compx Not Reported Not Detected (NotDetected); Efaecalis Not Reported Not Detected (NotDetected); Efaecium Not Reported Not Detected (NotDetected); Enterobacterales Not Reported Not Detected (NotDetected); Escherichia coli Not Reported Not Detected (NotDetected); H influenzae Not Reported DETECTED (NotDetected); K aerogenes Not Reported Not Detected (NotDetected); Koxytoca Not Reported Not Detected (NotDetected); Kpneumoniae grp Not Reported Not Detected (NotDetected); Lmonocyt Not Reported Not Detected (NotDetected); N meningitidis Not Reported Not Detected (NotDetected); P aeruginosa Not Reported Not Detected (NotDetected); Proteus spp Not Reported Not Detected (NotDetected); Salmonella spp Not Reported Not Detected (NotDetected); Smarcescens Not Reported Not Detected (NotDetected); Staph lugdunensis Not Reported Not Detected (NotDetected); Staph spp. Not Reported Not Detected (NotDetected); Staphaureus Not Reported Not Detected (NotDetected); Staphepi Not Reported Not Detected (NotDetected); Stenmaltophilia Not Reported Not Detected (NotDetected); Strep agal(GrpB) Not Reported Not Detected (NotDetected); Strep pneum Not Reported Not Detected (NotDetected); Strep pyog (GrpA) Not Reported Not Detected (NotDetected); Strep spp Not Reported Not Detected (NotDetected)
[2023-07-28 14:17] LABS: Haemophilus influenzae DETECTED (NotDetected)
[2023-07-28] MEDS ORDERED: AMPICILLIN SOD/SULBACTAM SOD 3 GM VIAL IV SCH (15:15)
[2023-07-28] MEDS: LACTATED RINGER'S 500 ML IV ONE (15:25)
--- NOTE | 2023-07-28 15:28 | Hospitalist Progress Note ---
Date of Service July 28, 2023 Assessment & Plan (1) Sepsis: (2) UTI (urinary tract infection): (3) Bacterial conjunctivitis of left eye: Plan: Polytrim drops x 1 week (4) Pneumonia: (5) Influenza A: Plan Mr. Faith is a 73 year old male with a history of multiple, recent UTIs who presented to the ED 07/27 with flu-like symptoms as well as persistent urinary symptoms. Patient reports ongoing urinary issues since around 03/2023 and received 2-3 courses of 5-7 days of antibiotics. Patient met sepsis criteria upon presentation with tachycardia, leukocytosis, and presumed source of infection with a urinary source. Initial lactate was 1.6. Pt also tested positive for influenza A. Chest x-ray shows moderate LLL airspace opacity, likely due to pneumonia. Responded to fluid resuscitation in the ED w ith improvement in heart rate and BP. Urine with GNB and blood culture positive for H influenzae [place] Text with ID decontaminator recommended that Cipro could be PO option once stable and likely a course of 10 days. Will continue Unasyn in interim until cultures result #Sepsis, Multifactorial #Bacteremia 2/2 H. Influenzae #Superimposed bacterial pneumonia #Acute complicated cystitis, recurrent -Question of failed treatment, prostatitis? -LLL opacity on imaging, likely source of bacteremia -Discontinue CTX/azithro -Start Unasyn -Narrow as able -Po options for bacteremia potentially ciprofloxacin, will see what cultures result from UA -Follow cultures -Repeat blood cultures -PSA in am -Encourage PO intake, IV bolus prn #LUTS #Nocturia -notes issues with noturia and symptoms even without infection -Discussed pros/cons of psa level, agreed to obtaining with plans for baseline/aid in duration of treatment for infection and ensure close urology follow up DVT lovenox Admit pcu tele Admission and Anticipated Discharge Date Admission Date: July 27, 2023 Subjective Patient evaluated at bedside Reports feeling better overall, noted occasional rigors overnight; but denies any fevers, pain, dysuria or other acute concerns Physical Exam Constitutional: WD/WN, vitals as above Respiratory: rhonchorous cough Cardiovascular: RRR, no murmur, no edema Gastrointestinal (Abdomen): normal bowel sounds, soft, nontender, no hepatosplenomegaly Results & Data Results & Data Vital Signs (Past 12 Hours) Vital Signs Temp Pulse Pulse Resp BP Pulse Ox O2 Del Method 07/28/23 14:59 89 07/28/23 10:55 37.1 C 92 H 19 95/54 L 96 Room Air 07/28/23 10:46 Room Air 07/28/23 08:34 37.0 C 97 H 18 112/63 94 Room Air 07/28/23 07:45 85 07/28/23 04:18 37.5 C 93 H 20 125/66 92 Room Air Laboratory Results Short CBC 07/28/23 Range/Units 06:11 WBC 18.54 H (4.8-10.8) K/ul Hgb 11.5 L (14.0-18.0) g/dl Hct 32.5 L (42.0-52.0) % Plt Count 338 (130-400) K/uL BMP 07/28/23 06:11 Sodium 132 L Potassium 3.5 Chloride 102 Carbon Dioxide 20 L BUN 13 Creatinine 0.75 Glucose 100 H Calcium 8.0 L Liver Function 07/28/23 Range/Units 06:11 Total Bilirubin 0.7 (0.2-1.0) mg/dl Direct Bilirubin 0.2 (0-0.2) mg/dl AST 38 (13-39) U/L ALT 41 (7-52) U/L Alkaline Phosphatase 163 H (34-104) U/L Albumin 3.2 L (3.4-5.0) gm/dl Medications Administered Home Medications Medication Instructions Recorded Confirmed Last Taken No Known Home Medications 07/27/23 07/27/23 Unknown Active Medications Generic Name Dose Route Start Last Admin Trade Name Freq PRN Reason Stop Dose Admin Acetaminophen 650 mg 07/27/23 14:54 07/28/23 09:00 Acetaminophen 325 Mg Tab PO 08/26/23 14:53 650 mg Q4H PRN Administration Pain or Fever Enoxaparin Sodium 40 mg 07/28/23 09:00 07/28/23 08:58 Enoxaparin Inj 40 Mg/0.4 Ml Syr SQ 08/27/23 08:59 Not Given QAM ROHIT Guaifenesin/Codeine Phosphate 5 ml 07/28/23 03:46 07/28/23 12:42 Guaifenesin/Codeine 100mg/10mg 5ml Udc PO 08/27/23 03:45 5 ml Q6H PRN Administration Cough Polymyxin/Trimethoprim Sulfate 1 drops 07/27/23 15:00 07/28/23 12:37 Trimethoprim/Polymyxin B OP 08/03/23 14:59 1 drops Q3HWA ROHIT Administration (1) Sepsis Sepsis type: sepsis due to unspecified organism Sepsis acute organ dysfunction status: without acute organ dysfunction Qualified Code(s): A41.9 - Sepsis, unspecified organism (2) UTI (urinary tract infection) Urinary tract infection type: site unspecified Hematuria presence: without hematuria Qualified Code(s): N39.0 - Urinary tract infection, site not specified (4) Pneumonia Pneumonia type: due to unspecified organism Laterality: left Lung location: lower lobe of lung Qualified Code(s): J18.9 - Pneumonia, unspecified organism
[2023-07-28] MEDS: UNASYN 3000MG / NS q6h IV SCH (16:07)
[2023-07-29 08:29] LABS: Hematocrit (blood only) 36.4 % (42.0-52.0); Hemoglobin 12.2 g/dl (14.0-18.0); Mean Corpuscular Hemoglobin 28.2 pg (25.0-34.0); Mean Corpuscular Hgb Conc 33.5 g/dL (32.0-36.0); Mean Corpuscular Volume 84.3 fL (80.0-100.0); Mean Platelet Volume 10.3 fL (9.4-12.4); Platelet Count 384 K/uL (130-400); RDW Coefficient of Variation 15.5 % (11.5-14.5); RDW Standard Deviation 47.2 fL (36.4-46.3); Red Blood Count 4.32 M/uL (4.70-6.10); White Blood Count 18.07 K/ul (4.8-10.8)
[2023-07-29 08:41] LABS: BUN Creatinine Ratio 11.7 (10-20); Calcium 8.5 mg/dl (8.6-10.3); Creatinine Clr Calc Pharmacy 86.7 ml/min; Est GFR (African American) 105.1 ml/min; Est GFR (Non-African American) 90.7 ml/min; Magnesium 2.1 mg/dl (1.7-2.4); Phosphorus 2.4 mg/dl (2.5-4.9); Potassium 3.4 mmol/L (3.5-5.1)
[2023-07-29] MEDS ORDERED: POTASSIUM PHOS 3 MMOL/1 ML INFUSION IV STA (09:06)
[2023-07-29] MEDS: CIPROFLOXACIN / D5W 400 MG/200 ML BAG IV SCH (11:09)
[2023-07-29] MEDS: POTASSIUM PHOSPHATE 30 MMOL in SODIUM CHLORIDE 0.9% 500 ML IV ONE (11:10)
--- NOTE | 2023-07-29 15:16 | Hospitalist Progress Note ---
Date of Service July 29, 2023 Assessment & Plan (1) Sepsis: (2) UTI (urinary tract infection): (3) Bacterial conjunctivitis of left eye: Plan: Polytrim drops x 1 week (4) Pneumonia: (5) Influenza A: Plan Mr. Faith is a 73 year old male with a history of multiple, recent UTIs who presented to the ED 07/27 with flu-like symptoms as well as persistent urinary symptoms. Patient reports ongoing urinary issues since around 03/2023 and received 2-3 courses of 5-7 days of antibiotics. Patient met sepsis criteria upon presentation with tachycardia, leukocytosis, and presumed source of infection with a urinary source. Initial lactate was 1.6. Pt also tested positive for influenza A. Chest x-ray shows moderate LLL airspace opacity, likely due to pneumonia. Responded to fluid resuscitation in the ED w ith improvement in heart rate and BP. Urine with GNB and blood culture positive for H influenzae [place] Text with ID institutional aide recommended that Cipro could be PO option once stable and likely a course of 10 days. Discontinue Unasyn for Cipro IV given E coli suspectibilities--covers both H influenzae and e coli #Sepsis, Multifactorial #Bacteremia 2/2 H. Influenzae #Superimposed bacterial pneumonia #Acute complicated cystitis, recurrent -Question of failed treatment, prostatitis? -LLL opacity on imaging, likely source of bacteremia -Discontinue CTX/azithro -Transition Unasyn to Cipro IV -E Coli in UTI and H influ in blood culture (likely pulm source) -Po options for bacteremia potentially ciprofloxacin, will see what cultures result from UA -Follow cultures -Repeat blood cultures NGTD -PSA WNL -Encourage PO intake, IV bolus prn -Follow labs and clinical response #Hypokalemia #Hypophosphatemia -Replace prn #Normocytic anemia -b12 folate iron labs in am #LUTS #Nocturia -notes issues with noturia and symptoms even without infection -Discussed pros/cons of psa level, agreed to obtaining with plans for baseline/aid in duration of treatment for infection and ensure close urology follow up -PSA WNL, encourage discussion with Urology op DVT lovenox Admit pcu tele Admission and Anticipated Discharge Date Admission Date: July 27, 2023 Subjective NAEO, resting in bed upon evaluation Denies any acute concerns, reports subjective improvement and reduction in cough Physical Exam Constitutional: WD/WN, vitals as above Respiratory: normal respiratory effort, lungs clear to auscultation dry cough with deep inhalation Cardiovascular: RRR, no murmur, no edema Musculoskeletal: no cyanosis or clubbing, extremities motor strength 5/5 Results & Data Results & Data Vital Signs (Past 12 Hours) Vital Signs Temp Pulse Pulse Resp BP Pulse Ox O2 Del Method 07/29/23 12:52 Room Air 07/29/23 12:23 37.2 C 97 H 16 129/69 91 Room Air 07/29/23 08:07 36.9 C 91 H 18 131/69 92 Room Air 07/29/23 07:57 79 Laboratory Results Short CBC 07/29/23 Range/Units 07:36 WBC 18.07 H (4.8-10.8) K/ul Hgb 12.2 L (14.0-18.0) g/dl Hct 36.4 L (42.0-52.0) % Plt Count 384 (130-400) K/uL BMP 07/29/23 07:36 Sodium 136 Potassium 3.4 L Chloride 102 Carbon Dioxide 25 BUN 9 Creatinine 0.77 Glucose 97 Calcium 8.5 L Medications Administered Home Medications Medication Instructions Recorded Confirmed Last Taken No Known Home Medications 07/27/23 07/27/23 Unknown Active Medications Generic Name Dose Route Start Last Admin Trade Name Freq PRN Reason Stop Dose Admin Acetaminophen 650 mg 07/27/23 14:54 07/29/23 03:49 Acetaminophen 325 Mg Tab PO 08/26/23 14:53 650 mg Q4H PRN Administration Pain or Fever Enoxaparin Sodium 40 mg 07/28/23 09:00 07/29/23 09:47 Enoxaparin Inj 40 Mg/0.4 Ml Syr SQ 08/27/23 08:59 Not Given QAM ROHIT Guaifenesin/Codeine Phosphate 5 ml 07/28/23 03:46 07/29/23 09:51 Guaifenesin/Codeine 100mg/10mg 5ml Udc PO 08/27/23 03:45 5 ml Q6H PRN Administration Cough Ciprofloxacin 400 mg in 200 mls @ 100 mls/hr 07/29/23 09:30 07/29/23 13:09 Cipro / D5w IV 08/12/23 09:29 Infused Q8H ROHIT Infusion Protocol Polymyxin/Trimethoprim Sulfate 1 drops 07/27/23 15:00 07/29/23 11:10 Trimethoprim/Polymyxin B OP 08/03/23 14:59 1 drops Q3HWA ROHIT Administration (1) Sepsis Sepsis type: sepsis due to unspecified organism Sepsis acute organ dysfunction status: without acute organ dysfunction Qualified Code(s): A41.9 - Sepsis, unspecified organism (2) UTI (urinary tract infection) Urinary tract infection type: site unspecified Hematuria presence: without hematuria Qualified Code(s): N39.0 - Urinary tract infection, site not specified (4) Pneumonia Pneumonia type: due to unspecified organism Laterality: left Lung location: lower lobe of lung Qualified Code(s): J18.9 - Pneumonia, unspecified organism
[2023-07-30 07:28] LABS: BUN Creatinine Ratio 9.8 (10-20); Calcium 8.6 mg/dl (8.6-10.3); Creatinine Clr Calc Pharmacy 81.4 ml/min; Est GFR (African American) 102.4 ml/min; Est GFR (Non-African American) 88.3 ml/min; Potassium 3.8 mmol/L (3.5-5.1)
[2023-07-30 07:31] LABS: Hemoglobin 11.7 g/dl (14.0-18.0); Mean Corpuscular Hgb Conc 33.4 g/dL (32.0-36.0); Mean Corpuscular Volume 83.7 fL (80.0-100.0); Mean Platelet Volume 10.2 fL (9.4-12.4); Platelet Count 392 K/uL (130-400); RDW Coefficient of Variation 15.7 % (11.5-14.5); RDW Standard Deviation 47.4 fL (36.4-46.3); Red Blood Count 4.18 M/uL (4.70-6.10); White Blood Count 15.92 K/ul (4.8-10.8)
[2023-07-30 07:32] LABS: Basophils # (auto) 0.04 K/uL (0.00-0.20); Basophils % (auto) 0.3 %; Eosinophils # (auto) 0.05 K/uL (0.00-0.50); Eosinophils % (auto) 0.3 %; Immature Granulocytes # (auto) 1.27 K/uL (0.01-0.20); Lymphocytes # (auto) 1.65 K/uL (1.20-3.40); Lymphocytes % (auto) 10.4 %; Monocytes # (auto) 1.37 K/uL (0.11-0.59); Monocytes % (auto) 8.6 %; Neutrophils # (auto) 11.54 K/uL (1.40-6.50); Neutrophils % (auto) 72.4 %
[2023-07-30 07:53] LABS: Folate (Folic Acid),Ser orPlas 16.94 ng/ml (>5.38)
[2023-07-30] MEDS: POLYETHYLENE (MIRALAX) 17 GM PACK PO PRN (09:00)
--- NOTE | 2023-07-30 14:32 | Discharge Summary ---
Discharge Summary Date of Service July 30, 2023 Notes For Next Care Provider Medication Changes From Visit Ciprofloxacin 500mg two times daily for 13 more days Admission HPI Per Admitting Provider This is a 73 y/o male with a history of UTIs who presents to the ED today with five days of flu-like symptoms. He also notes that he was recently treated for a UTI but is unsure what antibiotic he was on. He reports fatigue, body aches, cough, and chills for the last five days. He moved to the area about two weeks ago from [place] and has not yet established with a PCP here. He notes at least 2-3 UTIs in the last several months but is unsure what antibiotics have been used. He denies history of BPH or other prostate issues. His current urinary symptoms include urinary frequency and urgency but denies dysuria or hematuria. He also noted purulent drainage from his left eye that started last night. Associated gritty sensation but no pain, no visual changes. Admission Exam Per Admitting Provider General: awake, alert, NAD Eyes: left eye with moderate purulent drainage, mild conjunctival erythema Mouth: moist mucus membranes Neck: trachea midline Heart: regular but tachycardic Lungs: CTA bilaterally Abdomen: soft, NT, +BS Extremities: no pedal edema Skin: warm, dry, no jaundice Neurologic: oriented x 3, moving all extremities, no focal deficits. Principal Dx & Hospital Course #1 = Principal Diagnosis (1) Sepsis: (2) UTI (urinary tract infection): (3) Bacterial conjunctivitis of left eye: Polytrim drops x 1 week (4) Pneumonia: (5) Influenza A: Plan Mr. Faith is a 73 year old male with a history of multiple, recent UTIs who presented to the ED 07/27 with flu-like symptoms as well as persistent urinary symptoms. Patient reports ongoing urinary issues since around 03/2023 and received 2-3 courses of 5-7 days of antibiotics. Patient met sepsis criteria upon presentation with tachycardia, leukocytosis, and presumed source of infection with a urinary source. Initial lactate was 1.6. Pt also tested positive for influenza A. Chest x-ray shows moderate LLL airspace opacity, likely due to pneumonia. Responded to fluid resuscitation in the ED wi th improvement in heart rate and BP. Urine with GNB and blood culture positive for H influenzae [place] Text with ID subcontract administrator recommended that Cipro could be PO option once stable and likely a course of 10 days. Discontinue Unasyn for Cipro IV given E coli suspectibilities--covers both H influenzae and e coli Given recurrent urinary tract infections, transient bacteremia with H influenza, viral pneumonia--deshaun continue ciprofloxacin for prolonged course of 14 days of ciprofloxacin 500mg BID. #Sepsis, Multifactorial #Bacteremia 2/2 H. Influenzae #Superimposed bacterial pneumonia #Acute complicated cystitis, recurrent -Question of failed treatment, prostatitis? -LLL opacity on imaging, likely source of bacteremia -Discontinue CTX/azithro -Transition Unasyn to Cipro IV -E Coli in UTI and H influ in blood culture (likely pulm source) -Po options for bacteremia potentially ciprofloxacin, will see what cultures result from UA -Follow cultures -Repeat blood cultures NGTD -PSA WNL -Encourage PO intake -Clinically much improved, afebrile > 24 hours #Hypokalemia #Hypophosphatemia -Replace prn #Normocytic anemia -b12 folate iron labs: WNL, iron borderline, ferritin elevated iso acute infection? #LUTS #Nocturia -notes issues with noturia and symptoms even without infection -Discussed pros/cons of psa level, agreed to obtaining with plans for baseline/aid in duration of treatment for infection and ensure close urology follow up -PSA WNL, encourage discussion with Urology op On day of discharge, patient feels much improved overall and eager to get home. Endorses lingering weakness and would agree to home pt.ot. Plan for physical therapy to be arranged once established with PCP. Discharge Exam Constitutional WD/WN, vitals as above Respiratory normal respiratory effort, lungs clear to auscultation Cardiovascular RRR, no murmur, no edema Gastrointestinal (Abdomen) normal bowel sounds, soft, nontender, no hepatosplenomegaly Updated Medication List Medication Instructions Recorded Confirmed Type No Known Home Medications 07/27/23 07/27/23 History ciprofloxacin HCl 500 mg tablet 500 mg PO Q12H #26 tabs 07/30/23 Rx Hospital Stay Data Consultations 07/28/23 15:05 Consult Infectious Diseases Routine Pending Results Patient Have Any Pending Studies at Discharge: No Discharge Instructions Given to Patient (Per Discharging Provider) You were admitted for shortness of breath and found to have Influenza and superimposed bacterial pneumonia. You were also noted to have urinary tract infection and concerns for conjunctivitis. You were started on antibiotics which were tailored to the following: -Ciprofloxacin 500mg two times a day, your next dose is this evening around 5- 6pm. Please continue the entire course Your course of antibiotic is longer in duration as the bacterial pneumonia caused a transient blood infection, in which a longer duration is recommended by Infectious Disease doctors. This antibiotic will cover the pneumonia, the urine infection, and the eye conjunctivitis. Please continue over the counter regimens for cough management: Robitussin, Mucinex, cough drops/sprays, or home remedies/teas that help sooth. Please rest for the next 24-48 hours. You can continue to use tylenol for fever and pain, over the counter--650mg every four to six hours as needed. You will need to see your PCP this coming week on 08/02/2023 at 2:20pm This will ensure you have home physical therapy established and at that time she can repeat blood work It is recommended you follow a urologist in the future to discuss recurrence of urinary tract infections. Total Time Total Time Spent Total Time Spent (In Minutes): 45
== END 2023-07-30 16:20 | disposition home health service (06) | DRG 871 ==
LOC: EDBD 09:37 → ED 09:37 → SUATTDRO 12:06 → 2S 12:06
DX: E87.6 Hypokalemia; N39.0 Urinary tract infection, site not specified; R35.1 Nocturia; Z87.440 Personal history of urinary (tract) infections; E83.39 Other disorders of phosphorus metabolism; A41.9 Sepsis, unspecified organism; J10.08 Influenza due to other identified influenza virus with other specified pneumonia; J18.9 Pneumonia, unspecified organism; H10.89 Other conjunctivitis; R39.89 Other symptoms and signs involving the genitourinary system; J15.9 Unspecified bacterial pneumonia